=== PATIENT | male | born 2005 | race African-American/Black ===

== ENCOUNTER 2024-02-27 10:46 | Emergency (ER) | payer BC, MEDICAID, SELFPAY ==
[2024-02-27 10:59] VITALS: BP 141/81; PULSE 98; RESP 14; TEMP 37.4; O2SAT 100
--- NOTE | 2024-02-27 12:04 | ED.GENADULT ---
HPI - General Adult General Chief complaint: Skin/Abscess/Foreign Body Stated complaint: Top Lip Swollen Source: patient Mode of arrival: ambulatory Limitations: no limitations History of Present Illness HPI narrative: Patient presents for evaluation of a lesion to the right upper lip. He first noticed the lesion two days ago. He woke from sleep yesterday with his lip swollen. He notes some purulent drainage from the area. No fever, chills, nausea, vomiting. He shaved few days prior to symptom onset. He applied ice and also tried to express fluid from the area without considerable improvement thereafter. He rates his pain as 7/10 in severity. Related Data Allergies Allergy/AdvReac Type Severity Reaction Status Date / Time No Known Allergies Allergy Verified 02/27/24 11:26 Review of Systems Review of Systems: CONSTITUTIONAL: Denies fever, chills, or sweats. EYES: Denies visual changes, redness, or discharge. ENT: Reports swelling to the upper lip. Denies rhinorrhea, congestion, sore throat, or otalgia. CARDIOVASCULAR: Denies chest pain, palpitations, or edema. RESPIRATORY: Denies cough or dyspnea. GASTROINTESTINAL: Denies abdominal pain, nausea, vomiting, or diarrhea. GENITOURINARY: Denies dysuria or hematuria. SKIN: reports pustule to the right upper lip. MUSCULOSKELETAL: Denies back pain, joint pain, or myalgia. NEUROLOGIC: Denies headache, numbness, dizziness, or weakness. PSYCHIATRIC: Denies anxiety or depression. PMFSH Past Medical History Medical History No pertinent past medical history Surgical History Surgical History No pertinent past surgical history Family History Family History Mother Family history non-contributory Social History Social History Substance use: current Substance use type: marijuana Gender identity (if verbalized by the patient): Male Sexual Orientation (if Verbalized by the Patient): Straight or Heterosexual Spiritual care concerns: No Exam Narrative: GENERAL: Well-appearing, well-nourished, and in no acute distress. HEAD: Normocephalic, atraumatic. EYES: PERRLA and EOMI. ENT: Nares clear, no rhinorrhea or epistaxis. Mucous membranes moist. Oropharynx without tonsillar hypertrophy exudate or other lesions. Bilateral TMs pearly kemp nonbulging. Right upper lip is edematous and indurated NECK: Supple. No adenopathy or masses. No carotid bruits or JVD CHEST: Clear to auscultation. No respiratory distress. No wheezes rales or rhonchi HEART: Regular rate and rhythm. No murmur heard. Normal peripheral pulses. ABDOMEN: Soft, nontender, nondistended, normal active bowel sounds. EXTREMITIES: Normal range of motion. No edema. SKIN: There is a 3 mm pustule to the right upper lip along the vermilion border which is actively draining purulent fluid. Warm, dry, no rash. NEURO: No focal deficits. Alert and oriented x3. PSYCH: Normal mood and affect. Course Course Emergency Course: this is a 18-year-old male who presented for evaluation of a pustule to the right upper lip. Bacterial and viral cultures were collected. A small amount of purulent material was expressed from the area. Based upon indurated nature of area there did appear to be a drainable fluid collection. Will dc with bactrim, keflex and ibuprofen. Follow up with primary provider. Go to the ER for worsening symptoms. He has no evidence of airway impairment. Patient in agreement with plan of care Level of Care: Express Care Visit Vital Signs Vital signs: Vital Signs Temperature 37.4 C 02/27/24 10:59 Pulse Rate 98 02/27/24 10:59 Respiratory Rate 02/27/24 10:59 Blood Pressure 141/81 H 02/27/24 10:59 Pulse Oximetry 100 02/27/24 10:59
== END 2024-02-27 12:05 | disposition home or self-care (01) ==
PROVIDERS: Emergency Provider Nurse Practitioner
DX: K13.0 Diseases of lips (principal); F12.90 Cannabis use, unspecified, uncomplicated
CPT/HCPCS: 87070; 87075; 87147; 87181; 87205; 87255; 99203; G0463